=== PATIENT | male | born 1965 | race African-American/Black ===

== ENCOUNTER → 2016-10-26 | Outpatient (CLI) | payer SELFPAY ==
[~2016-10-26] MED LIST: HYDR-2672 PO
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
== END | disposition home or self-care (01) ==
LOC: KCIC 08:59
PROVIDERS: ATTEND Neurological Surgery
DX: M54.5 Low back pain (principal)
CPT/HCPCS: 72100

== ENCOUNTER → 2016-11-09 | Outpatient (CLI) | payer OTHER ==
--- NOTE | 2016-11-09 12:25 | KCIC ---
EXAM: Cervical spine, 3 views. HISTORY: Fusion. COMPARISON: None. FINDINGS: Frontal, lateral and swimmer's views of the thoracic spine are obtained. There is instrumented intraspinal fusion and interbody fusion at C3-C6. The vertebral bodies are normal in height of the nonfused disc spaces are preserved. There is minimal anterior endplate remodeling at C6-C7. There is a malleable internal fixation plate within the left mandible. IMPRESSION: 1. Instrumented fusion at C3-C6. 2. No acute osseous finding. Electronically signed by: Rhianna Pabon MD (11/09/2016 12:22 PM)
== END | disposition home or self-care (01) ==
LOC: KCIC 11:52
PROVIDERS: ATTEND Neurological Surgery
DX: M43.22 Fusion of spine, cervical region (principal)
CPT/HCPCS: 72040

== ENCOUNTER → 2016-12-27 | Outpatient (CLI) | payer OTHER ==
[~2016-12-27] MED LIST changes: -HYDR-2672 PO; +HYDR-2766 PO
--- NOTE | 2016-12-27 11:39 | KCIC ---
INDICATION: Radiculopathy and neck pain COMPARISON: November 09, 2016 IMPRESSION: 3 views cervical spine obtained. Anterior spinal fusion changes at C3-C6 with spacers at disc spaces. Alignment is similar to prior without acute fracture or dislocation. Electronically signed by: Fredis Leija MD (12/27/2016 11:35 AM) [facility]
== END | disposition home or self-care (01) ==
LOC: KCIC 10:25
PROVIDERS: ATTEND Neurological Surgery
DX: M43.22 Fusion of spine, cervical region (principal); M54.12 Radiculopathy, cervical region
CPT/HCPCS: 72040

== ENCOUNTER → 2017-02-02 | Outpatient (CLI) | payer OTHER ==
--- NOTE | 2017-02-02 14:15 | KCIC ---
Examination: 2 views of the cervical spine HISTORY: History of radiculopathy. COMPARISON: 12/27/2016 FINDINGS: Anterior spinal fusion changes identified from C3 to C6 vertebral level with intervertebral disc spacers grossly similar to prior exam. There is no evidence of listhesis identified The facets are well aligned. IMPRESSION: Anterior cervical fusion hardware with intervertebral disc spacers identified from C3 to C6 vertebral level without significant listhesis. Electronically signed by: Yuri Boyer MD (02/02/2017 2:11 PM) [id number]
== END | disposition home or self-care (01) ==
LOC: KCIC 09:47
PROVIDERS: ATTEND Neurological Surgery
DX: M54.12 Radiculopathy, cervical region (principal); R20.0 Anesthesia of skin
CPT/HCPCS: 72040